=== PATIENT | female | born 1960 | race Caucasian/White ===

== ENCOUNTER 2025-03-09 20:45 | Inpatient (IN) | payer OTHER, MEDICARE ==
[2025-03-09 21:09] LABS: #Basophils 0.05 10x3/uL (0.0-0.2); #Eosinophils 0.28 10x3/uL (0.0-0.5); #Monocytes 0.41 10x3/uL (0.0-1.1); #Neutrophils 5.62 10x3/uL (1.5-8.4); %Basophils 0.7 % (0.0-2.0); %Eosinophils 3.7 % (0.0-6.0); %Lymphocytes 16.6 % (18.0-47.0); %Monocytes 5.4 % (0.0-10.0); %Neutrophils 73.3 % (40.0-75.0); Hematocrit 38.3 % (34.9-44.5); Hemoglobin 12.9 g/dL (12.0-15.5); Mean Corpuscular Hemoglobin 29.1 pg (27.0-33.0); Mean Corpuscular Volume 86.5 fL (81.6-98.3); Platelet Count 259 10x3/uL (150-450); Red Blood Cell (RBC) Count 4.43 10x6/uL (3.90-5.03); White Blood Cell (WBC) Count 7.65 10x3/uL (3.5-10.5)
[2025-03-09 21:21] LABS: INR-International Normal Ratio 1.0; PTT 26.2 sec (22.0-33.0); Prothrombin Time 10.9 sec (9.5-12.1)
[2025-03-09 21:39] LABS: ALT (SGPT) 18 U/L (Less than 34); AST (SGOT) 21 U/L (11-34); Albumin 4.0 g/dL (3.1-4.5); Alkaline Phosphatase 58 U/L (40-110); Anion Gap 16 mmol/L (10-20); BUN (Urea Nitrogen) 23 mg/dL (9.8-20.1); Bilirubin, Total 0.4 mg/dL (0.3-1.2); Calc. Creatinine Clearance 0 mL/min (70-130); Calcium 9.1 mg/dL (7.8-10.44); Carbon Dioxide 22 mmol/L (23-31); Chloride 106 mmol/L (98-107); Globulin 4.0 g/dL (2.4-3.5); Glucose 260 mg/dL (80-115); Potassium 4.1 mmol/L (3.5-5.1); Sodium 140 mmol/L (136-145); Troponin I Less than 0.010 ng/mL (< 0.028)
[2025-03-09] MEDS ORDERED: Aspirin Chewable 81 MG TAB ONE (21:47)
[2025-03-09] MEDS ORDERED: Glucagon 1 MG/ML KIT IM PRN (21:51)
[2025-03-09] MEDS ORDERED: Dextrose 50% Abboject 50 ML SYRINGE SLOW IVP PRN (21:51)
[2025-03-09 22:36] VITALS: BMI 39.6
[2025-03-09] MEDS ORDERED: hydrALAZINE 20 MG/ML VIAL SLOW IVP PRN (22:58)
[2025-03-10 05:32] LABS: #Basophils 0.03 10x3/uL (0.0-0.2); #Eosinophils 0.30 10x3/uL (0.0-0.5); #Monocytes 0.51 10x3/uL (0.0-1.1); #Neutrophils 5.96 10x3/uL (1.5-8.4); %Basophils 0.4 % (0.0-2.0); %Eosinophils 3.7 % (0.0-6.0); %Lymphocytes 16.3 % (18.0-47.0); %Monocytes 6.2 % (0.0-10.0); %Neutrophils 72.9 % (40.0-75.0); Hematocrit 34.8 % (34.9-44.5); Hemoglobin 11.3 g/dL (12.0-15.5); Mean Corpuscular Hemoglobin 28.3 pg (27.0-33.0); Mean Corpuscular Volume 87.0 fL (81.6-98.3); Platelet Count 219 10x3/uL (150-450); Red Blood Cell (RBC) Count 4.00 10x6/uL (3.90-5.03); White Blood Cell (WBC) Count 8.17 10x3/uL (3.5-10.5)
[2025-03-10 05:52] LABS: ALT (SGPT) 14 U/L (Less than 34); AST (SGOT) 15 U/L (11-34); Albumin 3.5 g/dL (3.1-4.5); Alkaline Phosphatase 49 U/L (40-110); Anion Gap 11 mmol/L (10-20); BUN (Urea Nitrogen) 20 mg/dL (9.8-20.1); Bilirubin, Total 0.4 mg/dL (0.3-1.2); Calc. Creatinine Clearance 94 mL/min (70-130); Calcium 8.9 mg/dL (7.8-10.44); Carbon Dioxide 26 mmol/L (23-31); Cardiac Risk 4.7 (Less than 4.5); Chloride 106 mmol/L (98-107); Cholesterol 122 mg/dl (< 200 Desired); Globulin 3.6 g/dL (2.4-3.5); Glucose 162 mg/dL (80-115); HDL Cholesterol 26 mg/dL (>60 Neg Risk); LDL Cholesterol, Calculated 55 mg/dL; Potassium 3.7 mmol/L (3.5-5.1); Sodium 139 mmol/L (136-145); Triglycerides 207 mg/dL (Less than 150)
[2025-03-10] MEDS: Famotidine 20 MG TAB PO SCH (09:16)
[2025-03-10] MEDS: Enoxaparin 40 MG (0.4 mL) SYRINGE SC SCH (09:17)
[2025-03-10] MEDS: Aspirin 81 mg Enteric Coated Tablet PO SCH (09:17)
[2025-03-10] MEDS: Famotidine/PF 20 mg/2ml Vial SLOW IVP SCH (09:19)
[2025-03-10] MEDS: Lantus 1000 UNITS/10 ML VIAL SC SCH (12:19)
[2025-03-10] MEDS: Ondansetron PF 4 MG/2 ML Vial IVP PRN (23:21)
[2025-03-11 04:01] LABS: #Basophils Less than 0.03 10x3/uL (0.0-0.2); #Eosinophils 0.30 10x3/uL (0.0-0.5); #Monocytes 0.70 10x3/uL (0.0-1.1); #Neutrophils 7.04 10x3/uL (1.5-8.4); %Basophils 0.2 % (0.0-2.0); %Eosinophils 3.2 % (0.0-6.0); %Lymphocytes 12.6 % (18.0-47.0); %Monocytes 7.6 % (0.0-10.0); %Neutrophils 76.1 % (40.0-75.0); Hematocrit 35.9 % (34.9-44.5); Hemoglobin 11.7 g/dL (12.0-15.5); Mean Corpuscular Hemoglobin 28.4 pg (27.0-33.0); Mean Corpuscular Volume 87.1 fL (81.6-98.3); Platelet Count 223 10x3/uL (150-450); Red Blood Cell (RBC) Count 4.12 10x6/uL (3.90-5.03); White Blood Cell (WBC) Count 9.26 10x3/uL (3.5-10.5)
[2025-03-11 04:12] LABS: Anion Gap 11 mmol/L (10-20); BUN (Urea Nitrogen) 16 mg/dL (9.8-20.1); Calc. Creatinine Clearance 84 mL/min (70-130); Calcium 9.1 mg/dL (7.8-10.44); Carbon Dioxide 26 mmol/L (23-31); Chloride 106 mmol/L (98-107); Glucose 174 mg/dL (80-115); Potassium 3.8 mmol/L (3.5-5.1); Sodium 139 mmol/L (136-145)
[2025-03-11] MEDS: Lantus 1000 UNITS/10 ML VIAL SC SCH ×2 (09:35→13:19)
[2025-03-11] MEDS: Losartan 25 MG TAB PO SCH (09:36)
[2025-03-11] MEDS: Nystatin Powder 15 GM BOT TOP SCH ×2 (12:37→20:15)
[2025-03-11] MEDS: Acetaminophen 325 MG TAB PO PRN (18:30)
[2025-03-11] MEDS ORDERED: Nystatin Powder 15 GM BOT TOP SCH (21:00)
[2025-03-12 04:15] LABS: #Basophils 0.04 10x3/uL (0.0-0.2); #Eosinophils 0.28 10x3/uL (0.0-0.5); #Monocytes 0.70 10x3/uL (0.0-1.1); #Neutrophils 4.41 10x3/uL (1.5-8.4); %Basophils 0.6 % (0.0-2.0); %Eosinophils 4.1 % (0.0-6.0); %Lymphocytes 19.5 % (18.0-47.0); %Monocytes 10.4 % (0.0-10.0); %Neutrophils 65.3 % (40.0-75.0); Hematocrit 33.7 % (34.9-44.5); Hemoglobin 11.2 g/dL (12.0-15.5); Mean Corpuscular Hemoglobin 28.9 pg (27.0-33.0); Mean Corpuscular Volume 87.1 fL (81.6-98.3); Platelet Count 225 10x3/uL (150-450); Red Blood Cell (RBC) Count 3.87 10x6/uL (3.90-5.03); White Blood Cell (WBC) Count 6.76 10x3/uL (3.5-10.5)
[2025-03-12 04:25] LABS: Anion Gap 10 mmol/L (10-20); BUN (Urea Nitrogen) 17 mg/dL (9.8-20.1); Calc. Creatinine Clearance 79 mL/min (70-130); Calcium 9.1 mg/dL (7.8-10.44); Carbon Dioxide 28 mmol/L (23-31); Chloride 105 mmol/L (98-107); Glucose 165 mg/dL (80-115); Potassium 3.7 mmol/L (3.5-5.1); Sodium 139 mmol/L (136-145)
[2025-03-12] MEDS ORDERED: Losartan 25 MG TAB PO SCH (09:00)
[2025-03-12] MEDS: Losartan 50 MG TAB PO SCH (09:48)
[2025-03-12] MEDS: Lantus 1000 UNITS/10 ML VIAL SC SCH (09:49)
[2025-03-13 04:53] LABS: #Basophils 0.05 10x3/uL (0.0-0.2); #Eosinophils 0.28 10x3/uL (0.0-0.5); #Monocytes 0.55 10x3/uL (0.0-1.1); #Neutrophils 5.55 10x3/uL (1.5-8.4); %Basophils 0.7 % (0.0-2.0); %Eosinophils 3.8 % (0.0-6.0); %Lymphocytes 13.0 % (18.0-47.0); %Monocytes 7.4 % (0.0-10.0); %Neutrophils 74.8 % (40.0-75.0); Hematocrit 36.1 % (34.9-44.5); Hemoglobin 11.9 g/dL (12.0-15.5); Mean Corpuscular Hemoglobin 28.5 pg (27.0-33.0); Mean Corpuscular Volume 86.4 fL (81.6-98.3); Platelet Count 242 10x3/uL (150-450); Red Blood Cell (RBC) Count 4.18 10x6/uL (3.90-5.03); White Blood Cell (WBC) Count 7.41 10x3/uL (3.5-10.5)
[2025-03-13 05:15] LABS: Anion Gap 11 mmol/L (10-20); BUN (Urea Nitrogen) 17 mg/dL (9.8-20.1); Calc. Creatinine Clearance 85 mL/min (70-130); Calcium 9.2 mg/dL (7.8-10.44); Carbon Dioxide 28 mmol/L (23-31); Chloride 104 mmol/L (98-107); Glucose 171 mg/dL (80-115); Potassium 3.5 mmol/L (3.5-5.1); Sodium 139 mmol/L (136-145)
[2025-03-13] MEDS: Lantus 1000 UNITS/10 ML VIAL SC SCH (14:47)
[2025-03-14 05:54] LABS: Anion Gap 14 mmol/L (10-20); BUN (Urea Nitrogen) 16 mg/dL (9.8-20.1); Calc. Creatinine Clearance 80 mL/min (70-130); Calcium 9.2 mg/dL (7.8-10.44); Carbon Dioxide 27 mmol/L (23-31); Chloride 104 mmol/L (98-107); Glucose 161 mg/dL (80-115); Potassium 4.0 mmol/L (3.5-5.1); Sodium 141 mmol/L (136-145)
[2025-03-14] MEDS: Lantus 1000 UNITS/10 ML VIAL SC SCH (08:49)
[2025-03-14 12:45] VITALS: BP 119/60; TEMP 98
== END 2025-03-14 15:00 | DRG 65 ==
LOC: CSHERS 20:45 → CSHTELE 21:50 → OBSVTOIN 03-10 11:06
PROVIDERS: ADMIT Internal Medicine; ATTEND Internal Medicine
DX: I63.89 Other cerebral infarction (principal); I69.354 Hemiplegia and hemiparesis following cerebral infarction affecting left non-dominant side; I10 Essential (primary) hypertension; E78.5 Hyperlipidemia, unspecified; Z88.2 Allergy status to sulfonamides; Z85.038 Personal history of other malignant neoplasm of large intestine; E03.9 Hypothyroidism, unspecified; C54.1 Malignant neoplasm of endometrium; Z68.39 Body mass index [BMI] 39.0-39.9, adult; Z79.899 Other long term (current) drug therapy; R29.700 NIHSS score 0; E66.09 Other obesity due to excess calories; R53.81 Other malaise; I66.12 Occlusion and stenosis of left anterior cerebral artery; E11.65 Type 2 diabetes mellitus with hyperglycemia; Z79.890 Hormone replacement therapy; Z79.82 Long term (current) use of aspirin; R29.810 Facial weakness; Z90.710 Acquired absence of both cervix and uterus; R29.702 NIHSS score 2
CPT/HCPCS: 36415; 36416; 70450; 70496; 70498; 70551; 71045; 80048; 80053; 80061; 83036; 84484; 85025; 85610; 85730; 93005; 93306; 94760; 96372; G0378; J1650; J1815; J2060